=== PATIENT | female | born 1945 | race Caucasian/White ===

== ENCOUNTER 2021-05-01 15:33 | Emergency (ER) | payer MEDICARE, BC ==
[~2021-05-01] VITALS: Ht 170.2 cm; Wt 102.1 kg
[2021-05-01] MEDS ORDERED: CHLORTHALIDONE25 MG PO (16:01)
[2021-05-01] MEDS ORDERED: TELMISARTAN80 MG PO (16:01)
[2021-05-01] MEDS ORDERED: SYMBICORT 16010.2 GM INH (16:01)
[2021-05-01] MEDS ORDERED: OMEPRAZOLE40 MG PO (16:02)
[2021-05-01] MEDS ORDERED: SIMVASTATIN40 MG PO (16:02)
[2021-05-01] MEDS ORDERED: SYNTHROID150 MCG PO (16:02)
[2021-05-01] MEDS ORDERED: MUPIROCIN22 GM TOP (16:02)
[2021-05-01] MEDS ORDERED: CEPHALEXIN500 M1 PO (17:14)
== END 2021-05-01 17:20 | disposition home or self-care (01) ==
LOC: ED 15:33
DX: L03.115 Cellulitis of right lower limb (principal); S80.811A Abrasion, right lower leg, initial encounter; I10 Essential (primary) hypertension; Z79.51 Long term (current) use of inhaled steroids; Z79.899 Other long term (current) drug therapy; W19.XXXA Unspecified fall, initial encounter
CPT/HCPCS: 99283